=== PATIENT | female | born 1950 | race Caucasian/White ===

== ENCOUNTER 2019-07-14 12:20 | Outpatient (CLI) | payer MEDICARE, OTHER ==
[~2019-07-14 12:20] MED LIST: ISOVUE-370 76%-LOCM 1 ML ONE
[2019-07-14 14:04] LABS: Estimated GFR-MDRD - POC Greater than 90
--- NOTE | 2019-07-14 15:09 | CT ---
CT Abdomen Pelvis W Con: 07/14/2019 12:00 AM CLINICAL INFORMATION: Lower abdominal pain and rectal hemorrhage COMPARISON: None. TECHNIQUE: Multiple contiguous axial images were obtained and a CT of the abdomen and pelvis with IV contrast. Oral contrast was administered. Coronal and sagittal reformats were performed. FINDINGS: Lower Chest: within normal limits. Abdomen: Liver: within normal limits. Bile Ducts: Normal caliber. Gallbladder: Removed Pancreas: within normal limits. Spleen: within normal limits. Adrenals: within normal limits. Kidneys: 4 mm nonobstructing right renal calcification. Pelvis: Reproductive Organs: Status post hysterectomy. Ureters: within normal limits. Bladder: within normal limits. Peritoneum: No ascites or free air, no fluid collection. Bowel: Normal caliber. There are a few scattered diverticula in the colon. Mesentery and Retroperitoneum: No enlarged mesenteric or retroperitoneal lymph nodes. Vessels: Atherosclerotic calcifications. Abdominal Wall: within normal limits. Bones: Degenerative changes in the spine. IMPRESSION: 1. Diverticulosis without evidence of acute diverticulitis 2. Nonobstructing right renal calcification
== END 2019-07-14 12:21 | disposition home or self-care (01) ==
LOC: BICCT 12:20
PROVIDERS: ATTEND Physician Assistant Medical
DX: K59.00 Constipation, unspecified (principal); R10.30 Lower abdominal pain, unspecified; K62.5 Hemorrhage of anus and rectum; K57.90 Diverticulosis of intestine, part unspecified, without perforation or abscess without bleeding; N20.0 Calculus of kidney
CPT/HCPCS: 74177; 82565; Q9966

== ENCOUNTER 2019-09-20 09:09 | Day surgery (SDC) | payer MEDICARE, OTHER ==
[2019-09-19 14:08] VITALS: BMI 42.5
[2019-09-20] MEDS ORDERED: PROPOFOL 200 MG/20 ML VIAL ONE (09:51)
--- NOTE | 2019-09-20 16:25 | OP ---
DATE OF PROCEDURE: 09/20/2019 PREPROCEDURE DIAGNOSES: 1. Personal history of colon polyps. 2. Nausea. 3. History of reflux. POSTPROCEDURE DIAGNOSES: 1. Esophagogastroduodenoscopy notable for a hiatal hernia, otherwise normal. 2. Colonoscopy notable for 3 small polyps, scattered in the right to the descending colon. These were all removed by cold snare polypectomy technique and submitted to Pathology. 3. Diverticulosis coli. RECOMMENDATIONS: 1. Await histopathology. 2. Repeat colonoscopy in 5 years. PROCEDURE IN DETAIL: After the patient was informed of the risk, benefits, and possible complication of endoscopy including perforation, bleeding, reaction to medication, and aspiration, informed consent was obtained. The patient was brought to endoscopy suite, where she was sedated in a gradual fashion. Once she was comfortable, a bite block was placed inside the orifices. The endoscope was advanced into the esophagus, stomach, and second and third portions of the duodenum and slowly removed. There was a hiatal hernia, sliding-type, but no evidence of ulcers, erosions, or lesions. No findings to suggest the patient's mild nausea, which has been chronic over time. The scope was removed after forward and retroflexed views were performed in the stomach. The patient was turned to the room and a rectal examination was performed, which was normal. The endoscope was advanced into the anal canal through the colon to the cecum, which was identified by ileocecal valve and the appendiceal orifice. The terminal ileum was entered briefly. The prep was good. There was diverticulosis coli throughout the colon. There were 3 polyps, ranging in size from 3 to 7 mm in size. They were flat and scattered from the ascending to the descending colon and they were all removed by cold snare polypectomy technique and submitted to Pathology. Retroflexed views in the rectum were normal. The scope was removed. The patient tolerated the procedure well. There were no complications. Job ID: [id number]
== END 2019-09-20 13:55 | disposition home or self-care (01) ==
LOC: SDC 09:09
PROVIDERS: ATTEND Internal Medicine Gastroenterology
PROC: 0DJ08ZZ Inspection of Upper Intestinal Tract, Via Natural or Artificial Opening Endoscopic (ICD-10-PCS; principal; 2019-09-20)
PROC: 0DBK8ZX Excision of Ascending Colon, Via Natural or Artificial Opening Endoscopic, Diagnostic (ICD-10-PCS; 2019-09-20)
PROC: 0DBM8ZX Excision of Descending Colon, Via Natural or Artificial Opening Endoscopic, Diagnostic (ICD-10-PCS; 2019-09-20)
DX: Z12.11 Encounter for screening for malignant neoplasm of colon (principal); D12.2 Benign neoplasm of ascending colon; K57.30 Diverticulosis of large intestine without perforation or abscess without bleeding; K44.9 Diaphragmatic hernia without obstruction or gangrene; K21.9 Gastro-esophageal reflux disease without esophagitis; Z86.010 Personal history of colon polyps; Z79.2 Long term (current) use of antibiotics; Z79.82 Long term (current) use of aspirin; Z79.899 Other long term (current) drug therapy; Z88.0 Allergy status to penicillin; Z88.1 Allergy status to other antibiotic agents; Z88.5 Allergy status to narcotic agent; Z88.6 Allergy status to analgesic agent; Z88.8 Allergy status to other drugs, medicaments and biological substances
CPT/HCPCS: 88305; J2704